=== PATIENT | male | born 1945 | race Caucasian/White ===

== ENCOUNTER 2023-04-30 19:51 | Emergency (ER) | payer MEDICARE, OTHER ==
[2023-04-30 20:12] VITALS: TEMP 97.6
[2023-04-30] MEDS ORDERED: ZOFRAN ODT 4 MG PO ONE (20:35)
--- NOTE | 2023-04-30 20:39 | ERPHSYRPT ---
- History of Present Illness Time Seen by Provider: 04/30/23 20:10 Source: patient Exam Limitations: no limitations Patient Subjective Stated Complaint: pt states constipation for 3 days Triage Nursing Assessment: pt came into the er via ambulance; pt was transferred to cot per EMS staff; pt is axo x3; c/o constipation; pt states pressure to rectum; abd round, soft, non-tender; c/o nausea, denies vomiting; active bowel sounds in all quads; skin PDW; no respiratory distress; vitals wnl Physician History: Patient is a 77-year-old male presents to our ED via EMS for evaluation of constipation x3 days. Patient reports feeling pressure in his rectum. Patient states his abdomen is distended. He feels mildly nauseous. No chest pain or shortness of breath. No nausea vomiting or diaphoresis. Patient's symptoms sta rted today. Symptoms are mild to moderate in intensity. No specific worsening improving factors. Patient voices no other complaints or concerns at this time. Portions of this note were created with voice recognition technology. There may be grammatical, spelling, punctuation or sound alike errors Timing/Duration: today Severity: moderate Modifying Factors: Improves With: nothing Associated Symptoms: nausea Allergies/Adverse Reactions: No Known Drug Allergies Allergy (Unverified 04/30/23 19:58) Home Medications: Amlodipine Besylate 2.5 mg PO DAILY 04/30/23 [History] Atorvastatin Calcium 80 mg PO DAILY 04/30/23 [History] Buspirone HCl 5 mg [Buspar 5 mg] 10 mg PO BID 04/30/23 [History] Fluoxetine HCl 40 mg PO DAILY 04/30/23 [History] Lisinopril 10 mg [Zestril 10 MG] 10 mg PO DAILY 04/30/23 [History] PANTOPRAZOLE 40 mg Tablet [Protonix 40MG Tablet] 40 mg PO DAILY 04/30/23 [History] Rivaroxaban [Xarelto] 20 mg PO DAILY 04/30/23 [History] Tamsulosin HCl 0.4 mg [Flomax 0.4 MG] 0.4 mg PO DAILY 04/30/23 [History] Triamcinolone 0.1% Cream [Kenalog 0.1% Cream 15 gm] 15 gm TP TID 04/30/23 [History] carvediloL [Coreg] 6.25 mg PO BID 04/30/23 [History] Hx Tetanus, Diphtheria Vaccination/Date Given: No Hx Influenza Vaccination/Date Given: No Hx Pneumococcal Vaccination/Date Given: No Immunizations Up to Date: No Travel Risk - International Travel Have you traveled outside of the country in past 3 weeks: No - Coronavirus Screening Are you exhibiting any of the following symptoms?: No Close contact with a COVID-19 positive Pt in past 14-21 Days: No - Vaccine Status Have you recieved a Covid-19 vaccination: Yes 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 - Vaccination Dates Dates if Unknown: 2020 - Review of Systems Constitutional: No Symptoms, No Fever, No Chills Eyes: No Symptoms Ears, Nose, & Throat: No Symptoms Respiratory: No Symptoms, No Cough, No Dyspnea Cardiac: No Symptoms, No Chest Pain, No Edema, No Syncope Abdominal/Gastrointestinal: No Symptoms, No Abdominal Pain, No Nausea, No Vomiting, No Diarrhea Genitourinary Symptoms: No Symptoms, No Dysuria Musculoskeletal: No Symptoms, No Back Pain, No Neck Pain Skin: No Symptoms, No Rash Neurological: No Symptoms, No Dizziness, No Focal Weakness, No Sensory Changes Psychological: No Symptoms Endocrine: No Symptoms Hematologic/Lymphatic: No Symptoms Immunological/Allergic: No Symptoms All Other Systems: Reviewed and Negative - Past Medical History Neurological History: Stroke Cardiac History: High Cholesterol, Hypertension Respiratory History: No Pertinent History Endocrine Medical History: No Pertinent History Musculoskeletal History: No Pertinent History GI Medical History: GERD, Ulcer History: No Pertinent History Psycho-Social History: No Pertinent History Male Reproductive Disorders: Prostate Problems 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 - Past Surgical History Past Surgical History: Yes Cardiac: Cardiac Stent Gastrointestinal: Appendectomy Genitourinary: No Pertinent History Musculoskeletal: No Pertinent History Male Surgical History: No Pertinent History - Social History Smoking Status: Smoker, status unknown Exposure to second hand smoke: No Drug Use: none Patient Lives Alone: No - Nursing Vital Signs Nursing Vital Signs: Initial Vital Signs Temperature 97.6 F 04/30/23 19:51 Pulse Rate 58 L 04/30/23 19:51 Respiratory Rate 18 04/30/23 19:51 Blood Pressure 129/51 04/30/23 19:51 O2 Sat by Pulse Oximetry 97 04/30/23 19:51 Pain Scale Pain Intensity 2 - Physical Exam General Appearance: no apparent distress, alert Eye Exam: PERRL/EOMI, eyes nml inspection Ears, Nose, Throat Exam: normal ENT inspection, TMs normal, pharynx normal, moist mucous membranes Neck Exam: normal inspection, non-tender, supple, full range of motion Respiratory Exam: normal breath sounds, lungs clear, airway intact, No respiratory distress Cardiovascular Exam: regular rate/rhythm, normal heart sounds, normal peripheral pulses Gastrointestinal/Abdomen Exam: soft, normal bowel sounds, distention, other (Distended abdomen. Patient feels rectal pressure otherwise no pain. Normal active bowel sounds), No tenderness, No mass Back Exam: normal inspection, normal range of motion, No CVA tenderness, No vertebral tenderness Extremity Exam: normal inspection, normal range of motion, pelvis stable Neurologic Exam: alert, oriented x 3, cooperative, genetics nurse II-XII nml as tested, normal mood/affect, sensation nml, No motor deficits Skin Exam: normal color, warm, dry, No rash Lymphatic Exam: No adenopathy SpO2 Interpretation: normal SpO2: 97 O2 Delivery: Room Air - Course Nursing assessment & vital signs reviewed: Yes - CT Exams Abdomen/Pelvis CT Interpretation: Tele-radiologist Report (CT abdomen pelvis reveals multiple bilateral renal calculi largest measuring 1.8 cm left UPJ x2. No hydronephrosis. Large hiatal hernia with food distended intrathoracic stomach, small gallstones, 5.5 cm renal cyst, sigmoid diverticulosis and mild diffuse f ecal stasis, with moderate rectal impacti) Ordered Tests: Active Orders 24 hr Category Date Time Status ABDOMEN AND PELVIS W/0 CONTRAS [CT] Stat Exams 04/30/23 19:58 Taken Medication Summary Discontinued Medications Generic Name Dose Route Start Last Admin Trade Name Freq PRN Reason Stop Dose Admin Ondansetron HCl 4 mg 04/30/23 20:35 04/30/23 20:49 Zofran 4 Mg/Udtablet Orally Disintegrating PO 04/30/23 20:36 4 mg STAT ONE Administration Ondansetron HCl Confirm 04/30/23 20:49 Zofran 4 Mg/Udtablet Orally Disintegrating Administered 04/30/23 20:50 Dose 4 mg .ROUTE .[facility] ONE - Progress Progress: improved Progress Note: Patient is a 77-year-old male presents to our ED via EMS for evaluation of rectal pressure and distended abdomen. Physical exam reveals a distended abdomen. No significant pain. CT abdomen pelvis reveals multiple bilateral renal calculi, no hydronephrosis large hiatal hernia with food distended intrathoracic stomach small gallstones and a 5.5 cm left renal cyst. Sigmoid diverticulosis and mild diffuse fecal stasis with moderate rectal impaction. Patient disimpacted by his staff nurse. Patient feels much better. Symptoms resolved. Patient is asymptomatic. Patient requesting discharge. I spoke to of general surgery regarding the food distended intrathoracic stomach. Since patient was not experiencing any symptomology in his chest and his symptomology was primarily in the mid to lower abdomen he advised that patient may be discharged however may need to follow-up with a bariatric surgeon at a tertiary care center. Patient was advised accordingly. Patient received Zofran for nausea. Nausea resolved. We will discharge patient home. He voices no other complaints or concerns at this time. Portions of this note were created with voice recognition technology. There may be grammatical, spelling, punctuation or sound alike errors Complexity of problem addressed is moderate acute complicated No critical care time Complexity of data reviewed and analyzed is extensive. Test ordered test reviewed. Results analyzed and clinically correlated with history and physical examination. Consultation with general surgeon regarding findings on CAT scan. I spoke to general surgeon at 9:54 PM Risk of complication and or risk of morbidity/mortality of patient management is low Vital stable. Time spent to discharge patient is approximately 10 to 15 minutes. Plan of care established for shared decision making. No social determinants of health present to impede follow-up. Portions of this note were created with voice recognition technology. There may be grammatical, spelling, punctuation or sound alike errors 04/30/23 23:[address] Adore Will see patient in: office Counseled pt/family regarding: diagnosis, need for follow-up, rad results - Departure Departure Disposition: Home Clinical Impression: Nephrolithiasis, Intrathoracic hiatal hernia, Gallstones, 5 cm left renal cyst, Sigmoid diverticulosis, Mild diffuse fecal stasis, Fecal impaction in rectum Condition: Stable Critical Care Time: No Referrals: YUNG BARCLAY MD [Primary Care Provider] - Follow up/PCP as directed Additional Instructions: Follow-up with a bariatric surgeon at a large tertiary/teaching hospital for further evaluation and treatment of your large hiatal hernia Discharge/Care Plan MAICOL RILEY was seen on 04/30/23 in the Emergency Room. The patient was counseled regarding Diagnosis,Lab results, Imaging studies, need for follow up and when to return to the Emergency Room. Prescriptions given: Discharge Note I have spoken with the patient and/or caregivers. I have explained the patient's condition, diagnosis and treatment plan based on the information available to me at this time. I have answered the patient's and/or caregiver's questions and addressed any concerns. The patient and/or caregivers have as good understanding of the patient's diagnosis, condition and treatment plan as can be expected at this point. The vital signs have been stable. The patient's condition is stable and appropriate for discharge from the emergency department. The patient will pursue further outpatient evaluation with the primary care physician or other designated or consulting physician as outlined in the discharge instructions. The patient and/or caregivers are agreeable to this plan of care and follow-up instructions have been explained in detail. The patient and/or caregivers have received these instruction. The patient/and or caregivers are aware that any significant change in condition or worsening of symptoms should prompt an immediate return to this or the closest emergency department or call 911.
[2023-04-30] MEDS ORDERED: ZOFRAN ODT 4 MG ONE (20:49)
[2023-04-30 23:49] VITALS: O2SAT 97
[2023-05-01 00:04] VITALS: BP 109/45; PULSE 74; RESP 18
--- NOTE | 2023-05-01 09:03 | XRAY ---
Indication: Abdominal pain. Constipation. Multiple contiguous axial images obtained through the abdomen and pelvis without contrast. Comparison: None Lung bases demonstrate scattered bilateral calcified pleural plaquing and mild bilateral dependent atelectasis. No infiltrate or effusion. Heart borderline enlarged. Moderate size hiatal hernia with food distended intrathoracic stomach. Noncontrasted stomach and bowel loops appear nonobstructed. There is mild diffuse scattered colonic fecal debris with moderate rectal impaction. Mild sigmoid diverticulosis without diverticulitis. Contracted gallbladder with at least 2 subcentimeter gallstones. No free fluid/air. Several bilateral renal calculi, largest left UPJ. Left kidney demonstrates 2 [id number] UPJ calculi measuring 1.8 and 2.0 cm each. No hydronephrosis or perinephric stranding/fluid. Mid left kidney demonstrates 5.9 cm exophytic cyst.. Enlarged prostate gland impresses on the base of the urinary bladder. Remaining liver, gallbladder, pancreas, spleen, adrenal glands, kidneys, ureters, and bladder are unremarkable for noncontrast exam. Mild/moderate scattered aortoiliac calcifications without AAA. Osseous structures intact with osteopenia, mild/moderate degenerative changes throughout the focal lumbar spine, and mild degenerative changes both hips. Small fatty left inguinal hernia. Impression: 1. Mild diffuse fecal stasis with moderate rectal impaction. 2. Bilateral renal calculi. Largest left UPJ without hydronephrosis or obstructive uropathy. There is potential for intermittent ball-valve obstruction. 3. Chronic findings including hiatal hernia with intrathoracic stomach, bibasilar calcified pleural plaquing, cholelithiasis, sigmoid diverticulosis, left renal cyst, enlarged prostate gland, arteriosclerotic disease, fatty left inguinal hernia, and chronic bony findings.
== END 2023-04-30 23:58 | disposition home or self-care (01) ==
LOC: ED 19:51
DX: N20.0 Calculus of kidney (principal); K44.9 Diaphragmatic hernia without obstruction or gangrene; K80.20 Calculus of gallbladder without cholecystitis without obstruction; N28.1 Cyst of kidney, acquired; K57.30 Diverticulosis of large intestine without perforation or abscess without bleeding; K59.89 Other specified functional intestinal disorders; K56.41 Fecal impaction; R11.0 Nausea; E78.5 Hyperlipidemia, unspecified; I10 Essential (primary) hypertension; Z79.01 Long term (current) use of anticoagulants; Z79.899 Other long term (current) drug therapy
CPT/HCPCS: 74176; 99283; Q0162

== ENCOUNTER 2023-12-09 09:24 | Emergency (ER) | payer MEDICARE, OTHER ==
[2023-12-09 09:30] VITALS: TEMP 97.6
--- NOTE | 2023-12-09 09:38 | ERPHSYRPT ---
- History of Present Illness Time Seen by Provider: 12/09/23 09:35 Historian: patient Exam Limitations: no limitations Patient Subjective Stated Complaint: C/O low back pain that started last night. Patient indicates that he has had this same pain previously when he was co nstipated/impacted. States last BM was almost a week ago. Denies nausea, vomiting or abd pain. Triage Nursing Assessment: Patient arrived by ambulance. He is alert and oriente d; hard of hearing. CHUNG WNL. NO SOB noted. No cough. Skin tone normal. Patient denies falls or injury. Abdomen is soft, distended, non-tender to palpation. Physician History: Patient is a 78-year-old white Male who presents with a complaint of constipation for 1 week. He has a history of constipation in the past and his last episode was about 2 months ago he at that time had back pain similar to what he is experiencing today.He denies any known trauma. Timing/Duration: week(s) (1) Activities at Onset: none Quality: throbbing Abdominal Pain Onset Location: suprapubic Pain Radiation: back Severity of Pain-Max: moderate Severity of Pain-Current: moderate Allergies/Adverse Reactions: No Known Drug Allergies Allergy (Verified 12/09/23 09:37) Home Medications: Amlodipine Besylate 2.5 mg PO DAILY 04/30/23 [History] Atorvastatin Calcium 80 mg PO DAILY 04/30/23 [History] Buspirone HCl 5 mg [Buspar 5 mg] 10 mg PO BID 04/30/23 [History] Fluoxetine HCl 40 mg PO CLARIFY 04/30/23 [History] Lisinopril 10 mg [Zestril 10 MG] 10 mg PO DAILY 04/30/23 [History] Rivaroxaban [Xarelto] 20 mg PO DAILY 04/30/23 [History] Tamsulosin HCl 0.4 mg [Flomax 0.4 MG] 0.4 mg PO DAILY 04/30/23 [History] carvediloL [Coreg] 6.25 mg PO BID 04/30/23 [History] Omeprazole 40 mg PO DAILY 12/09/23 [History] Hx Tetanus, Diphtheria Vaccination/Date Given: Yes Hx Influenza Vaccination/Date Given: No Hx Pneumococcal Vaccination/Date Given: No Immunizations Up to Date: Yes Travel Risk - International Travel Have you traveled outside of the country in past 3 weeks: No - Emerging Infectious Disease Are you exhibiting symptoms associated with any current EIDs: No - Review of Systems Constitutional: No Fever, No Chills Eyes: No Symptoms Ears, Nose, & Throat: No Symptoms Respiratory: No Cough, No Dyspnea Cardiac: No Chest Pain, No Edema, No Syncope Abdominal/Gastrointestinal: Constipation, No Abdominal Pain, No Nausea, No Vomiting, No Diarrhea Genitourinary Symptoms: Hesitancy, No Dysuria Musculoskeletal: Back Pain, No Neck Pain Skin: No Rash Neurological: No Dizziness, No Focal Weakness, No Sensory Changes Psychological: No Symptoms Endocrine: No Symptoms All Other Systems: Reviewed and Negative - Past Medical History Neurological History: Stroke Cardiac History: High Cholesterol, Hypertension Respiratory History: No Pertinent History Endocrine Medical History: No Pertinent History Musculoskeletal History: No Pertinent History GI Medical History: GERD, Ulcer History: No Pertinent History Psycho-Social History: No Pertinent History Male Reproductive Disorders: Prostate Problems 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 - Past Surgical History Past Surgical History: Yes Cardiac: Cardiac Stent Gastrointestinal: Appendectomy Genitourinary: No Pertinent History Musculoskeletal: No Pertinent History Male Surgical History: No Pertinent History - Social History Smoking Status: Former smoker Exposure to second hand smoke: No Drug Use: none Patient Lives Alone: No - Social Determinants of Health Will the patient participate in the screening: Yes Do you worry about a steady place to live?: No Do you have any problems with any of the following?: No known problems In the past 12 months,have you had to go without utilities?: No Transportation Issues: No Has anyone in your support network made you feel unsafe?: No Have you or anyone in your house had to go without enough: No - Nursing Vital Signs Nursing Vital Signs: Initial Vital Signs Temperature 97.6 F 12/09/23 09:29 Pulse Rate 55 L 12/09/23 09:29 Respiratory Rate 19 12/09/23 09:29 Blood Pressure 134/64 12/09/23 09:29 O2 Sat by Pulse Oximetry 96 12/09/23 09:29 Pain Scale Pain Intensity [Lower back] 4 Pain Intensity 4 - Physical Exam General Appearance: no apparent distress, alert Eye Exam: PERRL/EOMI, eyes nml inspection Ears, Nose, Throat Exam: normal ENT inspection, pharynx normal, moist mucous membranes Neck Exam: normal inspection, non-tender, supple, full range of motion Respiratory Exam: normal breath sounds, lungs clear, No respiratory distress Cardiovascular Exam: regular rate/rhythm, normal heart sounds Gastrointestinal/Abdomen Exam: soft, No tenderness, No mass Back Exam: normal inspection, normal range of motion, No CVA tenderness, No vertebral tenderness Extremity Exam: normal inspection, normal range of motion, pelvis stable Neurologic Exam: alert, oriented x 3, cooperative, normal mood/affect, nml cerebellar function, sensation nml, No motor deficits Skin Exam: normal color, warm, dry SpO2: 96 - Course Nursing assessment & vital signs reviewed: Yes - Radiology Exams Abdomen X-ray Interpretation: Reviewed by me, Other (Rectal impaction was noted on the x-rays) L-Spine X-ray Interpretation: Reviewed by me, Other (Degenerative changes noted on the x-rays) Ordered Tests: Active Orders 24 hr Category Date Time Status KUB Stat Exams 12/09/23 09:53 Completed LUMBAR COMPLETE (MIN 4 VIEWS) Stat Exams 12/09/23 09:53 Completed - Progress Progress: improved Progress Note: 12/09/23 11:14 After 2 enemas a large amount of stool was passed patient clinically felt much better Medical Desision Making - Diagnostic Testing Radiological Interpretation: Reviewed by me - Risk of complications Minimal Risk: Minimal risk of morbidity - Departure Departure Disposition: Home Clinical Impression: Fecal impaction in rectum Condition: Stable Critical Care Time: No Referrals: YUNG BARCLAY MD [Primary Care Provider] - Follow up/PCP as directed Instructions: Fecal Impaction Additional Instructions: Patient was advised to get [id number] MiraLAX and use it on a regular basis as soon as he missed a stool
--- NOTE | 2023-12-09 10:15 | XRAY ---
Indication: Pain. Comparison: None KUB nonacute and nonobstructed with CT proven 1.8 and 2.0 cm left renal calculi. Also CT proven right lung base calcified pleural plaquing. Solid organs unremarkable. Osseous structures intact with osteopenia and mild degenerative changes.
--- NOTE | 2023-12-09 10:15 | XRAY ---
Indication: Pain. Comparison: None 5 view lumbar spine demonstrates 5 lumbar segments in normal alignment with osteopenia, mild/moderate multilevel thoracolumbar degenerative changes greatest at L4-S1, CT proven left renal calculi, and mild aortic calcifications. No other bony, articular, or soft tissue abnormalities.
[2023-12-09 11:37] VITALS: BP 147/69; PULSE 53; RESP 17; O2SAT 94
== END 2023-12-09 11:57 | disposition home or self-care (01) ==
LOC: ED 09:24
DX: K56.41 Fecal impaction (principal); E78.5 Hyperlipidemia, unspecified; I10 Essential (primary) hypertension; Z79.01 Long term (current) use of anticoagulants; Z79.899 Other long term (current) drug therapy
CPT/HCPCS: 72110; 74018; 99283

== ENCOUNTER 2025-05-10 14:22 | Emergency (ER) | payer MEDICARE ==
[2025-05-10 15:08] VITALS: TEMP 97.4
[2025-05-10 16:19] LABS: INFLUENZA A NEGATIVE (NEGATIVE); INFLUENZA B NEGATIVE (NEGATIVE); RESPIRATORY SYNCTIAL VIRUS NEGATIVE (NEGATIVE); SARS-CoV-2 Xpert Express NEGATIVE (NEGATIVE)
--- NOTE | 2025-05-10 16:25 | XRAY ---
Indication: Short of breath. Comparison: February 17, 2025 Portable chest inflated and remains clear. Heart not enlarged for AP portable technique. Again moderate-sized hiatal hernia with partial intrathoracic stomach. Bony thorax intact again with osteopenia and mild degenerative changes. Impression: Continued nonacute chest with chronic features.
--- NOTE | 2025-05-10 17:26 | ERPHSYRPT ---
- History of Present Illness Patient Subjective Stated Complaint: patient bound to wheelchari unableto walk from last stroke woke up this morning feeling very week his was diagnosed with covid saturday family concerned he has it as well. Triage Nursing Assessment: patietn not able to ambulate by self, assist of 2, tre camacho brought him here in wheelchair, states he woke up this morning feeling very weak and short of brearth. patient states he wasnt able to sleep last nite. he's worried about his . patient a& O x3, skin warm dry and intact. abdomen is distended but patient says that is normal and he has hernia as well. Physician History: Exposure to COVID, the patient is demented unable to give a history, history obtained from the family, he was exposed to COVID by his who was diagnosed 2 days ago, he has not had any kind of symptoms including URI type symptoms, no shortness of breath, he has been at his baseline of confusion Timing/Duration: other Associated Symptoms: denies symptoms Allergies/Adverse Reactions: No Known Drug Allergies Allergy (Verified 05/10/25 15:01) Home Medications: Amlodipine Besylate 2.5 mg PO DAILY 04/30/23 [History] Atorvastatin Calcium 80 mg PO DAILY 04/30/23 [History] Buspirone HCl 5 mg [Buspar 5 mg] 10 mg PO BID 04/30/23 [History] Fluoxetine HCl 40 mg PO DAILY 04/30/23 [History] Lisinopril 10 mg [Zestril 10 MG] 10 mg PO DAILY 04/30/23 [History] Tamsulosin HCl 0.4 mg [Flomax 0.4 MG] 0.4 mg PO DAILY 04/30/23 [History] carvediloL [Coreg] 6.25 mg PO BID 04/30/23 [History] Omeprazole 40 mg PO DAILY 12/09/23 [History] Aspirin EC 81 mg [Ecotrin 81 mg] 81 mg PO DAILY 02/18/25 [History] Clopidogrel Bisulfate [Plavix] 75 mg PO DAILY 02/18/25 [History] Pantoprazole Sodium 40 mg PO DAILY 02/18/25 [History] Trazodone HCl 50 mg [Desyrel 50 mg] 50 mg PO HS 02/18/25 [History] Triamcinolone 0.1% Cream [Kenalog 0.1% Cream 15 gm] 1 each TOP TID 02/18/25 [History] Hx Tetanus, Diphtheria Vaccination/Date Given: Yes Hx Influenza Vaccination/Date Given: Yes Hx Pneumococcal Vaccination/Date Given: Yes Immunizations Up to Date: Yes Travel Risk - International Travel Have you traveled outside of the country in past 3 weeks: No - Emerging Infectious Disease Are you exhibiting symptoms associated with any current EIDs: Yes Symptoms: Shortness of Breath - Past Medical History Pertinent Past Medical History: Yes Neurological History: Stroke Cardiac History: High Cholesterol, Hypertension, Other Respiratory History: Pneumonia Endocrine Medical History: No Pertinent History Musculoskeletal History: No Pertinent History GI Medical History: GERD, Ulcer History: No Pertinent History Psycho-Social History: No Pertinent History Male Reproductive Disorders: Prostate Problems Other Medical History: PATIENT WITH HX OF CARDIAC STENT PLACEMENT IN HIS HEART - Past Surgical History Past Surgical History: Yes Cardiac: Cardiac Stent Gastrointestinal: Appendectomy Genitourinary: No Pertinent History Musculoskeletal: No Pertinent History Male Surgical History: No Pertinent History Significant Family History: no pertinent family hx - Social History Smoking Status: Former smoker Exposure to second hand smoke: No Drug Use: none - Social Determinants of Health Will the patient participate in the screening: Yes Do you worry about a steady place to live?: No Do you have any problems with any of the following?: No known problems In the past 12 months,have you had to go without utilities?: No Transportation Issues: No Has anyone in your support network made you feel unsafe?: No Have you or anyone in your house had to go w/o enough food: No - Nursing Vital Signs Nursing Vital Signs: Initial Vital Signs Temperature 97.4 F 05/10/25 14:23 Pulse Rate 98 H 05/10/25 14:23 Respiratory Rate 20 05/10/25 14:23 Blood Pressure 159/84 05/10/25 14:23 O2 Sat by Pulse Oximetry 98 05/10/25 14:23 Pain Scale Pain Intensity 0 - Physical Exam General Appearance: no apparent distress, alert Eye Exam: PERRL/EOMI, eyes nml inspection Ears, Nose, Throat Exam: normal ENT inspection, TMs normal, pharynx normal, moist mucous membranes Neck Exam: normal inspection, non-tender, supple, full range of motion Respiratory Exam: normal breath sounds, lungs clear, No respiratory distress Cardiovascular Exam: regular rate/rhythm, normal heart sounds, normal peripheral pulses Gastrointestinal/Abdomen Exam: soft, normal bowel sounds, No tenderness, No mass Back Exam: normal inspection, normal range of motion, No CVA tenderness, No vertebral tenderness Extremity Exam: normal inspection, normal range of motion, pelvis stable Neurologic Exam: alert, cooperative, normal mood/affect, nml cerebellar function, nml station & gait, sensation nml, confusion, No motor deficits Skin Exam: normal color, warm, dry, No rash Lymphatic Exam: No adenopathy SpO2 Interpretation: normal SpO2: 98 Ordered Tests: Active Orders 24 hr Category Date Time Status CHEST 1 VIEW (PORTABLE) Stat Exams 05/10/25 15:27 Completed Lab/Rad Data: Laboratory Results 05/10/25 Range/Units 15:35 Influenza Type A Ag NEGATIVE (NEGATIVE) Influenza Type B Ag NEGATIVE (NEGATIVE) RSV (PCR) NEGATIVE (NEGATIVE) SARS-CoV-2 (PCR) NEGATIVE (NEGATIVE) - Progress Progress Note: 05/10/25 17:24 Discussed results with the Daughter, She is attempting to find placement for him - Departure Departure Disposition: Home Clinical Impression: Dementia Qualifiers: Dementia type: unspecified type Dementia behavioral or psychological symptom: without behavioral, psychotic, or mood disturbance or anxiety Condition: Stable Critical Care Time: No Referrals: DOV IVY [Primary Care Provider, [facility]] - Follow Up with PCP Referral Note: as needed Instructions: Dementia - ED discharge instructions
[2025-05-10 18:07] VITALS: BP 138/106; PULSE 100; RESP 20; O2SAT 97
== END 2025-05-10 18:50 | disposition home or self-care (01) ==
LOC: ED 14:22
DX: F03.90 Unspecified dementia, unspecified severity, without behavioral disturbance, psychotic disturbance, mood disturbance, and anxiety (principal); Z20.822 Contact with and (suspected) exposure to COVID-19; I10 Essential (primary) hypertension; Z79.02 Long term (current) use of antithrombotics/antiplatelets; Z79.899 Other long term (current) drug therapy